=== PATIENT | female | born 1955 | race Caucasian/White ===

== ENCOUNTER 2022-07-14 11:02 | Emergency (ER) | payer SELFPAY ==
[2022-07-14 11:12] VITALS: BP 124/85; PULSE 83; RESP 20; TEMP 97.9; BMI 23.8
[2022-07-14] MEDS ORDERED: ACETAMINOPHEN 325 MG TABLET (FP) PO ONE (12:08)
== END 2022-07-14 14:01 | disposition home or self-care (01) ==
LOC: JERFT 11:02
DX: S43.101A Unspecified dislocation of right acromioclavicular joint, initial encounter (principal); S42.034A Nondisplaced fracture of lateral end of right clavicle, initial encounter for closed fracture; W01.0XXA Fall on same level from slipping, tripping and stumbling without subsequent striking against object, initial encounter
CPT/HCPCS: 73030-TC-RT-FY; 99283-25